=== PATIENT | male | born 1955 | race Caucasian/White ===

== ENCOUNTER 2022-05-13 15:07 | Emergency (ER) | payer MEDICARE, MEDICAID ==
[~2022-05-13] VITALS: Ht 168.9 cm; Wt 68.0 kg
[~2022-05-13 15:07] MED LIST: FLUT9.9S BOTHNSTRLS; IBUP-2028 MT
[2022-05-13 15:35] VITALS: BP 155/86
== END 2022-05-14 01:27 | disposition left against medical advice (07) ==
LOC: ER 15:07
DX: Z53.21 Procedure and treatment not carried out due to patient leaving prior to being seen by health care provider (principal)